=== PATIENT | male | born 1965 | race Caucasian/White ===

== ENCOUNTER → 2018-04-25 | Outpatient (CLI) | payer OTHER ==
[~2018-04-25] MED LIST: ASPI325EC PO; ASPI81CH PO; ASPI81EC PO; ATOR40TA PO; ATOR80 PO; Avodart0.5 MG PO; CEPH500 PO; CLOP75 PO; DOXA4 PO; FAMO20 PO; HYDACE5325 PO; METO25 PO; PANT20 PO
[2018-04-25 12:39] LABS: CHOL/HDL RATIO 2.8; Cholesterol 159 mg/dL (50-200); HDL Cholesterol 57 mg/dL (>39); LDL/HDL RATIO 1.4; Low Density Lipoprotein Chol 80 mg/dL (0-110); Triglycerides 112 mg/dL (30-160); Very Low Density Lipoprot Chol 22 mg/dL (6-32)
== END ==
LOC: LAB SHORT 08:30 → LAB 08:30
PROVIDERS: Physician Assistant
DX: I25.10 Atherosclerotic heart disease of native coronary artery without angina pectoris (principal)
CPT/HCPCS: 80061